=== PATIENT | female | born 1960 | race Caucasian/White ===

== ENCOUNTER 2021-11-18 17:54 | Emergency (ER) | payer OTHER ==
[~2021-11-18] VITALS: Ht 157.5 cm; Wt 90.7 kg
[2021-11-18] MEDS ORDERED: ATOR40TA PO (18:30)
[2021-11-18] MEDS ORDERED: ERGO500040 PO (18:30)
[2021-11-18] MEDS ORDERED: LISI20TA30 PO (18:30)
[2021-11-18] MEDS ORDERED: EMPA25TA PO (18:30)
[2021-11-18] MEDS ORDERED: KETOROLAC TROMETHAMINE 30 MG INJ ONE (18:31)
--- NOTE | 2021-11-18 18:39 | NUR ---
PT I9S IN ROOM #2A. DR MORFIN EVALUATED THE PT.
[2021-11-18] MEDS ORDERED: KETOROLAC TROMETHAMINE 30 MG INJ IVP ONE (18:45)
[2021-11-18 18:50] LABS: HEMATOCRIT 37.8 % (31.2-41.9); MEAN CORPUSCULAR HEMOGLOBIN 29.1 uug (24.7-32.8); PLATELET COUNT (AUTO) 206 K/uL (179-408)
--- NOTE | 2021-11-18 19:00 | NUR ---
RECEIVED REPORT FROM MORNING RN. PT NOTED TO BE IN BED, DENIES ANY PAIN/DISCOMFORT AT THIS TIME. A/O X4.
[2021-11-18 19:03] LABS: CARBON DIOXIDE 28 mmol/L (21-32); CHLORIDE 102 mmol/L (98-107); CREATININE 0.6 mg/dL (0.6-1.3); GLUCOSE 91 mg/dL (74-106); POTASSIUM 3.9 mmol/L (3.5-5.1); UREA NITROGEN, BLOOD 8 mg/dL (7-18)
[2021-11-18 19:12] LABS: ALANINE AMINOTRANSFERASE 24 U/L (14-59); ALKALINE PHOSPHATASE 83 U/L (50-136); ASPARTATE AMINOTRANSFERASE 11 U/L (15-37); BILIRUBIN,DIRECT 0.1 mg/dL (0.0-0.2); BILIRUBIN,TOTAL 0.3 mg/dL (0.2-1.0); TOTAL PROTEIN, SERUM 7.4 g/dL (6.4-8.2)
[2021-11-18] MEDS ORDERED: NAPR-1164 PO (20:53)
--- NOTE | 2021-11-18 21:06 | NUR ---
Patient discharged to home in stable condition. Written and verbal after care instructions given. Patient verbalizes understanding of instructions. Stressed follow up or return to ER for worsening s/s. Steady gait. Denies any pain/discomfort upon discharge. Accompanied by .
[2021-11-18 21:07] VITALS: BP 126/88
== END 2021-11-18 21:07 | disposition home or self-care (01) ==
LOC: ER 18:02
DX: R07.9 Chest pain, unspecified (principal); M25.512 Pain in left shoulder; E78.5 Hyperlipidemia, unspecified; E11.9 Type 2 diabetes mellitus without complications; Z79.84 Long term (current) use of oral hypoglycemic drugs; Z79.899 Other long term (current) drug therapy
CPT/HCPCS: 36415; 71045; 73030; 80048; 80076; 84484 ×2; 85025; 93005; 96374; 99285; J1885; A4663

== ENCOUNTER 2022-12-04 19:55 | Emergency (ER) | payer OTHER ==
[~2022-12-04] VITALS: Ht 157.5 cm; Wt 97.5 kg
[~2022-12-04 19:55] MED LIST: ATOR40TA PO; EMPA25TA PO; ERGO500040 PO; LISI20TA30 PO; NAPR-1164 PO
--- NOTE | 2022-12-04 21:40 | NUR ---
Dr Bah into speak with patient.
[2022-12-04] MEDS ORDERED: KETOROLAC TROMETHAMINE 15 MG INJ IVP ONE (22:00)
[2022-12-04 22:03] LABS: HEMATOCRIT 41.1 % (31.2-41.9); MEAN CORPUSCULAR HEMOGLOBIN 29.1 uug (24.7-32.8); MEAN CORPUSCULAR VOLUME 86.7 fL (75.5-95.3); PLATELET COUNT (AUTO) 215 K/uL (179-408)
[2022-12-04] MEDS ORDERED: KETOROLAC TROMETHAMINE 15 MG INJ ONE (22:03)
[2022-12-04 22:09] LABS: CREATININE 0.7 mg/dL (0.6-1.3); POTASSIUM 3.4 mmol/L (3.5-5.1)
[2022-12-04 22:22] LABS: BILIRUBIN,TOTAL 0.2 mg/dL (0.2-1.0); TOTAL PROTEIN, SERUM 7.6 g/dL (6.4-8.2)
[2022-12-04] MEDS ORDERED: HYDROCODONE/APAP 10-325 MG TABLET PO ONE (22:30)
[2022-12-04] MEDS ORDERED: IV NORMAL SALINE 250 ML IV ONE (22:46)
[2022-12-04] MEDS ORDERED: SWABABLE VALVE TRANSFER SET EA MC ONE (22:46)
[2022-12-04] MEDS ORDERED: IOHEXOL 350 100 ML INFUS..BTL ONE (22:47)
--- NOTE | 2022-12-04 23:05 | NUR ---
Patient out of unit for ct scan via wheelchair.
--- NOTE | 2022-12-04 23:28 | NUR ---
Patient back from ct scan with no distress noted.
[2022-12-04] MEDS ORDERED: HYDROCODONE/APAP 10-325 MG TABLET ONE (23:42)
--- NOTE | 2022-12-05 00:36 | NUR ---
IV removed. Catheter intact and site benign. Pressure and 4x4 gauze applied to site. No bleeding noted.
--- NOTE | 2022-12-05 00:45 | NUR ---
Patient discharged to home in stable condition with taking patient home. Written and verbal after care instructions given. Patient verbalizes understanding of instructions. Stressed follow up or return to ER for worsening s/s.
[2022-12-05 01:17] VITALS: BP 145/77
== END 2022-12-05 00:45 | disposition home or self-care (01) ==
LOC: ER 19:55
DX: R07.89 Other chest pain (principal); E78.5 Hyperlipidemia, unspecified; E11.9 Type 2 diabetes mellitus without complications; I10 Essential (primary) hypertension; Z79.899 Other long term (current) drug therapy
CPT/HCPCS: 99285; 96374; 71275; 71045; 80053; 83880; 85025; 84484 ×2; 36415; J1885; Q9967; A4663

== ENCOUNTER 2025-07-10 14:24 | Emergency (ER) | payer OTHER ==
[~2025-07-10] VITALS: Ht 157.5 cm; Wt 84.4 kg
[~2025-07-10 14:24] MED LIST changes: +ERGO125010 PO; -ERGO500040 PO
[2025-07-10 14:32] VITALS: BP 157/77
[2025-07-10] MEDS ORDERED: IBUPROFEN 200 MG TABLET ONE (15:02)
[2025-07-10] MEDS ORDERED: ACETAMINOPHEN 500 MG TABLET ONE (15:02)
[2025-07-10] MEDS: IBUPROFEN 200 MG TABLET PO ONE (15:08)
[2025-07-10] MEDS: ACETAMINOPHEN 500 MG TABLET PO ONE (15:08)
[2025-07-10 15:57] VITALS: BP 141/69; O2SAT 98
[2025-07-10] MEDS ORDERED: NAPR-1164 PO (15:59)
== END 2025-07-10 16:04 | disposition home or self-care (01) ==
LOC: ER 14:24
DX: M25.511 Pain in right shoulder (principal); E11.9 Type 2 diabetes mellitus without complications; E78.5 Hyperlipidemia, unspecified; I51.9 Heart disease, unspecified; Z79.84 Long term (current) use of oral hypoglycemic drugs; Z79.899 Other long term (current) drug therapy
CPT/HCPCS: 73020; A4606; A4663; A9150